=== PATIENT | male | born 1975 | race African-American/Black ===

== ENCOUNTER 2020-05-18 07:55 | Emergency (ER) | payer MEDICAID, OTHER ==
[~2020-05-18] VITALS: Ht 172.7 cm; Wt 73.0 kg
[2020-05-18] MEDS ORDERED: SODIUM CHLORIDE 0.9% 1,000 ML IV ONE (08:06)
[2020-05-18] MEDS ORDERED: MORPHINE SULFATE 4 MG/ML CPJ (NOT FOR IM USE) IV STA (08:06)
[2020-05-18] MEDS ORDERED: ONDANSETRON HCL 4MG/2ML INJ IV STA (08:06)
[2020-05-18] MEDS ORDERED: FAMOTIDINE 20MG/2ML VIAL IV STA (08:06)
[2020-05-18 08:31] LABS: HEMATOCRIT. 38.1 % (42.0-52.0); HEMOGLOBIN. 13.1 g/dL (14.0-18.0); MEAN CORPUSCULAR HEMOGLOBIN 30.8 pg (28.0-32.0); MEAN CORPUSCULAR VOLUME 89.8 fL (80.0-94.0); MEAN PLATELET VOLUME 8.3 fl (7.4-10.4); PLATELET 257 x1000/uL (130-400); RED BLOOD CELL COUNT 4.24 mill/uL (4.7-6.1); RED CELL DISTRIBUTION WIDTH 14.5 % (11.6-14.6)
[2020-05-18 08:37] LABS: CHLORIDE 99 mEq/L (98-107)
[2020-05-18 08:48] LABS: PROTHROMBIN TIME 10.3 sec (9.6-11.0)
[2020-05-18 09:31] LABS: PLATELET ESTIMATE NORMAL
[2020-05-18 11:30] VITALS: BP 191/101
== END 2020-05-18 11:35 | disposition home or self-care (01) ==
LOC: ER 07:55
DX: R10.84 Generalized abdominal pain (principal); E11.9 Type 2 diabetes mellitus without complications
CPT/HCPCS: 36415; 74176; 80053; 83690; 85025; 85610; 93005; 96361; 96374; 96375; 99285; J2270; J2405; J3490; J7030

== ENCOUNTER 2020-05-19 06:31 | Emergency (ER) | payer MEDICAID ==
[~2020-05-19] VITALS: Ht 165.1 cm; Wt 73.0 kg
[2020-05-19] MEDS ORDERED: FAMOTIDINE 20MG/2ML VIAL IV STA (06:43)
[2020-05-19] MEDS ORDERED: ONDANSETRON HCL 4MG/2ML INJ IV STA (06:43)
[2020-05-19] MEDS ORDERED: SODIUM CHLORIDE 0.9% 1,000 ML IV ONE (06:43)
[2020-05-19] MEDS ORDERED: MORPHINE SULFATE 4 MG/ML CPJ (NOT FOR IM USE) IV STA (06:43)
[2020-05-19] MEDS ORDERED: LORAZEPAM 2MG/ML CPJ IV ONE (06:45)
[2020-05-19 07:06] LABS: BASOPHILS % 0.6 % (0.0-2.0); EOSINOPHILS % 0.9 % (0.0-5.0); HEMATOCRIT. 40.9 % (42.0-52.0); HEMOGLOBIN. 13.8 g/dL (14.0-18.0); LYMPHOCYTES % 9.5 % (20.0-50.0); MEAN CORPUSCULAR HEMOGLOBIN 30.8 pg (28.0-32.0); MEAN CORPUSCULAR VOLUME 91.3 fL (80.0-94.0); MEAN PLATELET VOLUME 8.6 fl (7.4-10.4); MONOCYTES % 5.3 % (2.0-8.0); NEUTROPHILS % 83.7 % (40.0-76.0); PLATELET 251 x1000/uL (130-400); RED BLOOD CELL COUNT 4.48 mill/uL (4.7-6.1); RED CELL DISTRIBUTION WIDTH 14.4 % (11.6-14.6)
[2020-05-19 07:10] LABS: CHLORIDE 100 mEq/L (98-107)
[2020-05-19 07:15] LABS: ETHANOL BLOOD < 10 mg/dL; INR 0.9; PROTHROMBIN TIME 9.8 sec (9.6-11.0)
[2020-05-19 07:33] LABS: CLARITY URINE CLEAR (CLEAR); COLOR URINE YELLOW (YELLOW); KETONES URINE 1+ (NEGATIVE); LEUKOCYTE ESTERASE URINE NEGATIVE (NEGATIVE); NITRITE URINE NEGATIVE (NEGATIVE); OCCULT BLOOD URINE 2+ (NEGATIVE); PH URINE 6.5 (4.5-8.0); PROTEIN URINE 4+ (NEGATIVE); SPECIFIC GRAVITY URINE 1.022 (1.005-1.030)
[2020-05-19 08:12] LABS: *AMPHETAMINES SCREEN URINE NEGATIVE (NEGATIVE); *BARBITURATES SCREEN URINE NEGATIVE (NEGATIVE); *BENZODIAZEPINES SCREEN URINE NEGATIVE (NEGATIVE); *COCAINE SCREEN URINE NEGATIVE (NEGATIVE); CANNABINOID URINE SCREEN PRESUMTIVE POSITIVE (NEGATIVE); METHADONE URINE SCREEN NEGATIVE (NEGATIVE); OPIATES URINE SCREEN PRESUMTIVE POSITIVE (NEGATIVE); PHENCYCLIDINE URINE SCREEN NEGATIVE (NEGATIVE)
[2020-05-19 08:30] VITALS: BP 192/97
== END 2020-05-19 08:32 | disposition home or self-care (01) ==
LOC: ER 06:31
DX: R10.13 Epigastric pain (principal); R11.2 Nausea with vomiting, unspecified; F12.10 Cannabis abuse, uncomplicated; E11.9 Type 2 diabetes mellitus without complications; I10 Essential (primary) hypertension
CPT/HCPCS: 36415; 71045; 80053; 80305; 80320; 81003; 83690; 84484; 85025; 85610; 93005; 96361; 96374; 96375; 99285; J2060; J2270; J2405; J3490; J7030; G0480

== ENCOUNTER 2021-08-13 18:08 | Inpatient (IN) | payer MEDICAID ==
[~2021-08-13] VITALS: Ht 175.3 cm; Wt 79.4 kg
[2021-08-13] MEDS ORDERED: ONDANSETRON HCL 4MG/2ML INJ IV STA (18:31)
[2021-08-13] MEDS ORDERED: SODIUM CHLORIDE 0.9% 1,000 ML IV ONE (18:45)
[2021-08-13 19:41] LABS: HEMATOCRIT. 34.1 % (42.0-52.0); HEMOGLOBIN. 11.6 g/dL (14.0-18.0); MEAN CORPUSCULAR HEMOGLOBIN 30.8 pg (28.0-32.0); MEAN CORPUSCULAR VOLUME 90.2 fL (80.0-94.0); PLATELET 284 x1000/uL (130-400); RED BLOOD CELL COUNT 3.77 mill/uL (4.7-6.1); RED CELL DISTRIBUTION WIDTH 14.2 % (11.6-14.6)
[2021-08-13 19:46] LABS: CHLORIDE 101 mEq/L (98-107)
[2021-08-13 19:49] LABS: PROTHROMBIN TIME 10.7 sec (9.6-11.0)
[2021-08-13 19:50] LABS: ETHANOL BLOOD < 10 mg/dL
[2021-08-13] MEDS ORDERED: PIPERACILLIN/TAZ 3.375G PREMIX 50 ML IV NR (20:00)
[2021-08-13] MEDS ORDERED: VANCOMYCIN 1 G PREMIX 200 ML IV NR (20:00)
[2021-08-13] MEDS ORDERED: HYDROCODONE/ACETAMINOPHEN 5/325MG TABLET PO ONE (20:00)
[2021-08-13 20:05] LABS: PLATELET ESTIMATE NORMAL
[2021-08-13] MEDS ORDERED: SODIUM CHLORIDE 0.9% 1,000 ML IV NR (21:30)
[2021-08-14 07:00] LABS: CLARITY URINE CLOUDY (CLEAR); COLOR URINE YELLOW (YELLOW); KETONES URINE NEGATIVE (NEGATIVE); LEUKOCYTE ESTERASE URINE NEGATIVE (NEGATIVE); NITRITE URINE NEGATIVE (NEGATIVE); OCCULT BLOOD URINE TRACE (NEGATIVE); PROTEIN URINE 3+ (NEGATIVE); SPECIFIC GRAVITY URINE 1.019 (1.005-1.030)
[2021-08-14 07:27] LABS: *AMPHETAMINES SCREEN URINE NEGATIVE (NEGATIVE); *BARBITURATES SCREEN URINE NEGATIVE (NEGATIVE); *BENZODIAZEPINES SCREEN URINE NEGATIVE (NEGATIVE); *COCAINE SCREEN URINE NEGATIVE (NEGATIVE); METHADONE URINE SCREEN NEGATIVE (NEGATIVE)
[2021-08-14 07:28] LABS: CANNABINOID URINE SCREEN PRESUMTIVE POSITIVE (NEGATIVE); OPIATES URINE SCREEN PRESUMTIVE POSITIVE (NEGATIVE); PHENCYCLIDINE URINE SCREEN NEGATIVE (NEGATIVE)
[2021-08-14] MEDS ORDERED: NALOXONE HCL 0.4MG/ML VIAL IV PRN (09:30)
[2021-08-14] MEDS: HYDROCODONE/ACETAMINOPHEN 10/325MG TABLET PO PRN ×3 (09:30→22:57)
[2021-08-14 10:09] VITALS: BP 128/87
[2021-08-14] MEDS ORDERED: INSU100I28 SQ (10:37)
[2021-08-14] MEDS ORDERED: VANCOMYCIN 1 G PREMIX 200 ML IV SCH (11:00)
[2021-08-14] MEDS ORDERED: MORPHINE SULFATE 2 MG/ML CPJ (NOT FOR IM USE) IV NR (11:00)
[2021-08-14] MEDS: ENOXAPARIN 30MG/0.3ML SYR SUBCUT SCH (11:17)
[2021-08-14] MEDS: PIPERACILLIN/TAZOBACTAM 3.375 G in DEXTROSE 5% WATER 50 ML IV SCH ×2 (11:21→20:35)
[2021-08-14 11:57] VITALS: BP 128/87
[2021-08-14] MEDS: INSULIN GLARGINE UD 100 UNITS/ML SYR SUBCUT SCH ×2 (12:40→20:37)
[2021-08-14] MEDS ORDERED: DEXTROSE 50% WATER 50ML SYRINGE IV PRN (13:45)
[2021-08-14 16:00] VITALS: BP 165/86
[2021-08-14] MEDS: BLOOD SUGAR DIAGNOSTIC STRIP TEST SCH ×2 (16:06→20:35)
[2021-08-14] MEDS: AMLODIPINE 10MG TABLET PO SCH ×2 (17:00→17:05)
[2021-08-14] MEDS: INSULIN LISPRO 100 UNITS/ML SUBCUT SCH ×2 (17:06→20:35)
[2021-08-14 17:43] LABS: HEPATITIS B SURFACE ANTIGEN NEGATIVE
[2021-08-14 20:00] VITALS: BP 140/90
[2021-08-14] MEDS: SODIUM CHLORIDE 0.9% 1,000 ML IV SCH (20:35)
[2021-08-15 04:00] VITALS: BP 141/83
[2021-08-15] MEDS: ACETAMINOPHEN 325MG TABLET PO PRN ×2 (04:45→12:46)
[2021-08-15] MEDS: SODIUM CHLORIDE 0.9% 1,000 ML IV SCH ×2 (05:26→17:52)
[2021-08-15] MEDS: BLOOD SUGAR DIAGNOSTIC STRIP TEST SCH ×4 (06:16→20:00)
[2021-08-15] MEDS: INSULIN LISPRO 100 UNITS/ML SUBCUT SCH ×4 (06:17→21:49)
[2021-08-15 06:18] LABS: BASOPHILS % 0.2 % (0.0-2.0); EOSINOPHILS % 1.4 % (0.0-5.0); HEMATOCRIT. 29.3 % (42.0-52.0); HEMOGLOBIN. 9.7 g/dL (14.0-18.0); LYMPHOCYTES % 7.1 % (20.0-50.0); MEAN CORPUSCULAR HEMOGLOBIN 29.7 pg (28.0-32.0); MEAN CORPUSCULAR VOLUME 89.7 fL (80.0-94.0); MEAN PLATELET VOLUME 8.8 fl (7.4-10.4); MONOCYTES % 7.9 % (2.0-8.0); NEUTROPHILS % 83.4 % (40.0-76.0); PLATELET 301 x1000/uL (130-400); RED BLOOD CELL COUNT 3.27 mill/uL (4.7-6.1); RED CELL DISTRIBUTION WIDTH 14.3 % (11.6-14.6)
[2021-08-15 08:00] VITALS: BP 160/82
[2021-08-15] MEDS: PIPERACILLIN/TAZOBACTAM 3.375 G in DEXTROSE 5% WATER 50 ML IV SCH ×2 (08:27→21:46)
[2021-08-15] MEDS: ENOXAPARIN 30MG/0.3ML SYR SUBCUT SCH (08:27)
[2021-08-15] MEDS: AMLODIPINE 10MG TABLET PO SCH ×2 (08:28→08:37)
[2021-08-15] MEDS ORDERED: ENOXAPARIN 40MG/0.4ML SYR SUBCUT SCH (09:00)
[2021-08-15] MEDS ORDERED: MORPHINE SULFATE 2 MG/ML CPJ (NOT FOR IM USE) IV NR (10:15)
[2021-08-15] MEDS: INSULIN GLARGINE UD 100 UNITS/ML SYR SUBCUT SCH ×2 (10:28→21:48)
[2021-08-15 12:00] VITALS: BP 164/69
[2021-08-15] MEDS: OXYCODONE HCL/ACETAMINOPHEN 5/325MG TABLET PO PRN ×2 (13:43→21:47)
[2021-08-15 16:00] VITALS: BP 168/52
[2021-08-15 20:00] VITALS: BP_SYST 104; BP_SYST 150; BP_DIAS 58; BP_DIAS 78
[2021-08-16] VITALS: BP 132/59
[2021-08-16 04:00] VITALS: BP 194/92
[2021-08-16] MEDS: OXYCODONE HCL/ACETAMINOPHEN 5/325MG TABLET PO PRN ×4 (04:32→21:16)
[2021-08-16] MEDS: SODIUM CHLORIDE 0.9% 1,000 ML IV SCH ×3 (04:33→21:17)
[2021-08-16] MEDS: BLOOD SUGAR DIAGNOSTIC STRIP TEST SCH ×4 (06:40→21:08)
[2021-08-16 06:43] LABS: HEMATOCRIT. 28.1 % (42.0-52.0); HEMOGLOBIN. 9.3 g/dL (14.0-18.0); MEAN CORPUSCULAR HEMOGLOBIN 29.7 pg (28.0-32.0); MEAN CORPUSCULAR VOLUME 89.6 fL (80.0-94.0); MEAN PLATELET VOLUME 8.2 fl (7.4-10.4); PLATELET 328 x1000/uL (130-400); RED BLOOD CELL COUNT 3.14 mill/uL (4.7-6.1); RED CELL DISTRIBUTION WIDTH 14.5 % (11.6-14.6)
[2021-08-16] MEDS: INSULIN LISPRO 100 UNITS/ML SUBCUT SCH ×4 (07:10→21:00)
[2021-08-16 08:00] VITALS: BP 178/93
[2021-08-16] MEDS: ACETAMINOPHEN 325MG TABLET PO PRN (08:17)
[2021-08-16] MEDS: AMLODIPINE 10MG TABLET PO SCH ×2 (08:17→08:24)
[2021-08-16] MEDS: PIPERACILLIN/TAZOBACTAM 3.375 G in DEXTROSE 5% WATER 50 ML IV SCH ×2 (08:17→21:08)
[2021-08-16] MEDS: ENOXAPARIN 30MG/0.3ML SYR SUBCUT SCH (08:17)
[2021-08-16] MEDS: INSULIN GLARGINE UD 100 UNITS/ML SYR SUBCUT SCH ×2 (10:34→21:16)
[2021-08-16] MEDS ORDERED: HYDRALAZINE HCL 100MG TABLET PO SCH (11:15)
[2021-08-16 11:44] LABS: PLATELET ESTIMATE NORMAL
[2021-08-16 16:00] VITALS: BP 159/71
[2021-08-16 20:00] VITALS: BP 159/98
[2021-08-16] MEDS: HYDRALAZINE HCL 100MG TABLET PO SCH (21:00)
[2021-08-17] VITALS: BP 167/96
[2021-08-17 04:00] VITALS: BP 168/80
[2021-08-17] MEDS: OXYCODONE HCL/ACETAMINOPHEN 5/325MG TABLET PO PRN ×3 (05:54→21:43)
[2021-08-17] MEDS: BLOOD SUGAR DIAGNOSTIC STRIP TEST SCH ×4 (05:55→20:06)
[2021-08-17] MEDS: INSULIN LISPRO 100 UNITS/ML SUBCUT SCH ×4 (05:55→21:00)
[2021-08-17] MEDS: SODIUM CHLORIDE 0.9% 1,000 ML IV SCH ×2 (08:00→16:54)
[2021-08-17] MEDS: ENOXAPARIN 30MG/0.3ML SYR SUBCUT SCH (09:00)
[2021-08-17] MEDS: HYDRALAZINE HCL 100MG TABLET PO SCH ×2 (09:00→21:00)
[2021-08-17] MEDS: AMLODIPINE 10MG TABLET PO SCH (09:00)
[2021-08-17] MEDS: INSULIN GLARGINE UD 100 UNITS/ML SYR SUBCUT SCH ×2 (09:32→21:12)
[2021-08-17] MEDS: PIPERACILLIN/TAZOBACTAM 3.375 G in DEXTROSE 5% WATER 50 ML IV SCH ×2 (09:33→20:06)
[2021-08-17 13:07] LABS: ANTI-NUCLEAR ANTIBODIES DIRECT Positive (Negative)
[2021-08-17 16:00] VITALS: BP 170/87
[2021-08-17] MEDS ORDERED: LIDOCAINE HCL/PF 2% 20MG/ML 5 ML/VIAL INJ ONE (18:45)
[2021-08-17 20:00] VITALS: BP 171/89
[2021-08-17 21:28] LABS: BASOPHILS % 0.3 % (0.0-2.0); EOSINOPHILS % 2.2 % (0.0-5.0); HEMATOCRIT. 29.1 % (42.0-52.0); HEMOGLOBIN. 9.5 g/dL (14.0-18.0); LYMPHOCYTES % 8.6 % (20.0-50.0); MEAN CORPUSCULAR HEMOGLOBIN 29.5 pg (28.0-32.0); MEAN CORPUSCULAR VOLUME 90.8 fL (80.0-94.0); MEAN PLATELET VOLUME 7.8 fl (7.4-10.4); MONOCYTES % 7.1 % (2.0-8.0); NEUTROPHILS % 81.8 % (40.0-76.0); PLATELET 430 x1000/uL (130-400); RED BLOOD CELL COUNT 3.21 mill/uL (4.7-6.1); RED CELL DISTRIBUTION WIDTH 14.8 % (11.6-14.6)
[2021-08-17 21:43] LABS: PHOSPHORUS 3.4 mg/dL (2.5-4.9)
[2021-08-17] MEDS ORDERED: VANCOMYCIN 1 G PREMIX 200 ML IV NR (23:00)
[2021-08-18] VITALS: BP 169/75
[2021-08-18 04:00] VITALS: BP 140/71
[2021-08-18] MEDS: SODIUM CHLORIDE 0.9% 1,000 ML IV SCH ×2 (04:26→16:33)
[2021-08-18] MEDS: OXYCODONE HCL/ACETAMINOPHEN 5/325MG TABLET PO PRN ×4 (04:26→21:51)
[2021-08-18] MEDS: BLOOD SUGAR DIAGNOSTIC STRIP TEST SCH ×4 (06:47→21:51)
[2021-08-18] MEDS: INSULIN LISPRO 100 UNITS/ML SUBCUT SCH ×4 (06:47→21:00)
[2021-08-18 08:00] VITALS: BP 181/96
[2021-08-18] MEDS: HYDRALAZINE HCL 100MG TABLET PO SCH ×2 (09:00→21:50)
[2021-08-18] MEDS: AMLODIPINE 10MG TABLET PO SCH (09:00)
[2021-08-18] MEDS: PIPERACILLIN/TAZOBACTAM 3.375 G in DEXTROSE 5% WATER 50 ML IV SCH ×2 (09:10→21:50)
[2021-08-18 12:00] VITALS: BP 179/100
[2021-08-18] MEDS: ENOXAPARIN 30MG/0.3ML SYR SUBCUT SCH (12:27)
[2021-08-18] MEDS: INSULIN GLARGINE UD 100 UNITS/ML SYR SUBCUT SCH ×2 (12:28→21:52)
[2021-08-18 16:00] VITALS: BP 182/86
[2021-08-18 18:14] LABS: BASOPHILS % 0.5 % (0.0-2.0); EOSINOPHILS % 2.3 % (0.0-5.0); HEMATOCRIT. 27.2 % (42.0-52.0); HEMOGLOBIN. 9.1 g/dL (14.0-18.0); LYMPHOCYTES % 13.2 % (20.0-50.0); MEAN CORPUSCULAR HEMOGLOBIN 29.7 pg (28.0-32.0); MEAN PLATELET VOLUME 7.8 fl (7.4-10.4); MONOCYTES % 7.9 % (2.0-8.0); NEUTROPHILS % 76.1 % (40.0-76.0); PLATELET 472 x1000/uL (130-400); RED BLOOD CELL COUNT 3.06 mill/uL (4.7-6.1); RED CELL DISTRIBUTION WIDTH 14.5 % (11.6-14.6)
[2021-08-18 20:00] VITALS: BP 162/71
[2021-08-19] VITALS: BP 145/86
[2021-08-19] MEDS: OXYCODONE HCL/ACETAMINOPHEN 5/325MG TABLET PO PRN ×4 (01:58→17:36)
[2021-08-19] MEDS: SODIUM CHLORIDE 0.9% 1,000 ML IV SCH ×3 (01:58→23:27)
[2021-08-19 04:00] VITALS: BP 153/89
[2021-08-19] MEDS: INSULIN LISPRO 100 UNITS/ML SUBCUT SCH ×4 (05:59→21:00)
[2021-08-19] MEDS: BLOOD SUGAR DIAGNOSTIC STRIP TEST SCH ×4 (05:59→20:36)
[2021-08-19 08:00] VITALS: BP 172/85
[2021-08-19] MEDS: PIPERACILLIN/TAZOBACTAM 3.375 G in DEXTROSE 5% WATER 50 ML IV SCH (09:12)
[2021-08-19] MEDS: ENOXAPARIN 30MG/0.3ML SYR SUBCUT SCH (09:14)
[2021-08-19] MEDS: INSULIN GLARGINE UD 100 UNITS/ML SYR SUBCUT SCH (09:45)
[2021-08-19] MEDS: AMLODIPINE 10MG TABLET PO SCH (10:14)
[2021-08-19] MEDS: HYDRALAZINE HCL 100MG TABLET PO SCH ×2 (10:14→22:00)
[2021-08-19 12:00] VITALS: BP 166/90
[2021-08-19] MEDS: ONDANSETRON HCL 4MG/2ML INJ IV PRN ×2 (12:29→23:01)
[2021-08-19] MEDS ORDERED: LACTULOSE 20G/30ML UDC PO PRN (12:45)
[2021-08-19 16:00] VITALS: BP 179/89
[2021-08-19] MEDS ORDERED: NALOXONE HCL 0.4MG/ML VIAL IV PRN (17:15)
[2021-08-19] MEDS: CLONIDINE 0.1MG TABLET PO SCH (17:36)
[2021-08-19 20:00] VITALS: BP 158/88
[2021-08-19] MEDS: CEFAZOLIN 1000MG PREMIX 50 ML IV SCH (20:44)
[2021-08-20] VITALS: BP 156/86
[2021-08-20 04:00] VITALS: BP 153/79
[2021-08-20] MEDS: CEFAZOLIN 1000MG PREMIX 50 ML IV SCH ×2 (05:13→18:29)
[2021-08-20] MEDS: HYDRALAZINE HCL 100MG TABLET PO SCH ×2 (06:00→14:00)
[2021-08-20] MEDS: BLOOD SUGAR DIAGNOSTIC STRIP TEST SCH ×3 (06:18→16:40)
[2021-08-20] MEDS: INSULIN LISPRO 100 UNITS/ML SUBCUT SCH ×3 (07:10→17:10)
[2021-08-20 08:00] VITALS: BP 164/85
[2021-08-20] MEDS: CLONIDINE 0.1MG TABLET PO SCH ×2 (08:36→09:00)
[2021-08-20] MEDS: AMLODIPINE 10MG TABLET PO SCH ×2 (08:36→09:00)
[2021-08-20] MEDS: OXYCODONE HCL/ACETAMINOPHEN 5/325MG TABLET PO PRN ×2 (08:37→10:21)
[2021-08-20] MEDS ORDERED: HYDROMORPHONE HCL/PF 2MG/ML CPJ IV PRN (09:45)
[2021-08-20] MEDS ORDERED: AMLO10TA80 PO (10:47)
[2021-08-20] MEDS ORDERED: CLON0.1T PO (10:47)
[2021-08-20] MEDS ORDERED: HYDR100T26 PO (10:47)
[2021-08-20] MEDS ORDERED: OXYC1TAB5 PO (10:47)
[2021-08-20] MEDS: SODIUM CHLORIDE 0.9% 1,000 ML IV SCH ×2 (10:57→16:00)
[2021-08-20] MEDS: ENOXAPARIN 30MG/0.3ML SYR SUBCUT SCH (10:58)
[2021-08-20 12:00] VITALS: BP 187/82
[2021-08-20] MEDS ORDERED: CLONIDINE 0.1MG TABLET PO SCH (17:00)
[2021-08-20 17:52] VITALS: BP 158/80
== END 2021-08-20 18:26 | disposition home health service (06) | DRG 320 ==
LOC: ER 18:08 → MICUSO 08-14 01:22 → 7EST 08-14 09:14
PROVIDERS: ADMIT Internal Medicine; ATTEND Internal Medicine
PROC: 0QBQ0ZZ Excision of Right Toe Phalanx, Open Approach (ICD-10-PCS; 2021-08-17)
PROC: 02HV33Z Insertion of Infusion Device into Superior Vena Cava, Percutaneous Approach (ICD-10-PCS; principal; 2021-08-18)
PROC: B548ZZA Ultrasonography of Superior Vena Cava, Guidance (ICD-10-PCS; 2021-08-18)
PROC: B5181ZA Fluoroscopy of Superior Vena Cava using Low Osmolar Contrast, Guidance (ICD-10-PCS; 2021-08-18)
DX: E11.69 Type 2 diabetes mellitus with other specified complication (principal); M86.8X7 Other osteomyelitis, ankle and foot; N17.0 Acute kidney failure with tubular necrosis; E43 Unspecified severe protein-calorie malnutrition; E11.319 Type 2 diabetes mellitus with unspecified diabetic retinopathy without macular edema; E87.1 Hypo-osmolality and hyponatremia; E11.621 Type 2 diabetes mellitus with foot ulcer; E11.22 Type 2 diabetes mellitus with diabetic chronic kidney disease; D64.9 Anemia, unspecified; L97.519 Non-pressure chronic ulcer of other part of right foot with unspecified severity; E11.65 Type 2 diabetes mellitus with hyperglycemia; D72.829 Elevated white blood cell count, unspecified; L02.611 Cutaneous abscess of right foot; Z20.822 Contact with and (suspected) exposure to COVID-19; N18.9 Chronic kidney disease, unspecified; Z79.4 Long term (current) use of insulin; Z91.14 Patient's other noncompliance with medication regimen; Q84.6 Other congenital malformations of nails; Z87.891 Personal history of nicotine dependence; Z79.899 Other long term (current) drug therapy; Z68.25 Body mass index [BMI] 25.0-25.9, adult
CPT/HCPCS: 36415; 36573; 71045; 73630; 73721; 76770; 80048; 80053; 80061; 80202; 80305; 80320; 81003; 82550; 82570; 82575; 82962; 83036; 83605; 83735; 83880; 84100; 84156; 84300; 84484; 85025; 85651; 86038; 86160; 86592; 86803; 87077; 87186; 87340; 87426; 93923; 97022; 97162; 99291; C1725; J0690; J1650; J1815; J2270; J2405; J2543; J3370; J3490; J7030; J7040; J7060; G0480

== ENCOUNTER 2023-10-26 07:06 | Inpatient (IN) | payer MEDICAID, OTHER ==
[~2023-10-26] VITALS: Ht 175.3 cm; Wt 77.1 kg
[~2023-10-26 07:06] MED LIST: AMLO10TA80 PO; CLON0.1T PO; HYDR100T26 PO; INSU100I28 SQ; OXYC1TAB5 PO
[2023-10-26] MEDS ORDERED: LEVETIRACETAM 1000MG PREMIX 100 ML IV ONE (07:30)
[2023-10-26 08:07] LABS: BG BASE EXCESS -3.4 mmol/L (-2.0-2.0); BG CARBOXYHEMOGLOBIN 0.5 % (0.5-1.5); BG DEOXYHEMOGLOBIN 3.8 % (0.0-5.0); BG FRACTION INSPIRED OXYGEN 21; BG HCO3 ACT 21.9 mmol/L (22.0-26.0); BG OXYGEN SATURATION 96.2 % (92.0-98.5); BG OXYHEMOGLOBIN 95.7 % (94.0-97.0); BG PCO2 40.4 mmHg (35.0-45.0); BG PH 7.352 (7.350-7.450); BG PO2 93.5 mmHg (75.0-100.0); BG SAMPLE SITE RIGHT RADIAL; BG TOTAL HEMOGLOBIN 9.9 g/dL (12.0-18.0); BG VENT MODE ROOM AIR
[2023-10-26] MEDS ORDERED: MORPHINE SULFATE 4 MG/ML CPJ (NOT FOR IM USE) IV ONE (08:30)
[2023-10-26] MEDS ORDERED: LORAZEPAM 2MG/ML INJ IV ONE (08:30)
[2023-10-26 08:59] LABS: HEMOGLOBIN. 8.3 g/dL (14.0-18.0); MEAN CORPUSCULAR HEMOGLOBIN 27.6 pg (28.0-32.0); MEAN CORPUSCULAR HGB CONC 33.3 g/dL (31.0-37.0); MEAN CORPUSCULAR VOLUME 83.1 fL (80.0-94.0); PLATELET 124 x1000/uL (130-400); RED CELL DISTRIBUTION WIDTH 19.5 % (11.6-14.6); WHITE BLOOD COUNT 13.6 x1000/uL (4.5-11.0)
[2023-10-26] MEDS: LORAZEPAM 2MG/ML INJ IV NR ×3 (09:05→09:26)
[2023-10-26 09:06] LABS: DIFFERENTIAL COMMENT 1
[2023-10-26 09:12] LABS: ALANINE AMINOTRANSFERASE 8 IU/L (10-49); ALBUMIN 3.7 g/dL (3.2-4.8); ASPARTATE AMINOTRANSFERASE 18 IU/L (<34); BETA HYDROXYBUTYRATE 1.7 mMol/L (0.0-0.3); CALCIUM 8.4 mg/dL (8.7-10.4); CARBON DIOXIDE 25 mEq/L (21-32); CHLORIDE 86 mEq/L (98-107); PROTEIN TOTAL 6.8 g/dL (6.0-8.3); UREA NITROGEN BLOOD 45 mg/dL (9-23)
[2023-10-26 09:59] LABS: ETHANOL BLOOD < 10 mg/dL (<10)
[2023-10-26 10:02] LABS: ANISOCYTOSIS 2+; PLATELET ESTIMATE SLIGHTLY DECREASED
[2023-10-26 10:06] LABS: CREATININE 9.8 mg/dL (0.6-1.3); GLUCOSE 834 mg/dL (70-105); SODIUM 120 mEq/L (136-145)
[2023-10-26] MEDS ORDERED: SODIUM CHLORIDE 0.9% 500 ML IV ONE (10:30)
[2023-10-26] MEDS ORDERED: INSULIN REGULAR (HUMULIN R) 300UNITS/3ML VIAL IV ONE (10:30)
[2023-10-26] MEDS: DEXT 5%/0.9% NACL 1,000 ML IV SCH ×3 (13:15→21:15)
[2023-10-26] MEDS ORDERED: INSULIN REGULAR (DRIP) 100 UNITS in SODIUM CHLORIDE 0.9% 99 ML IV SCH (13:15)
[2023-10-26] MEDS ORDERED: KCL 20MEQ/100ML PREMIX 100 ML IV PRN (13:15)
[2023-10-26] MEDS ORDERED: DEXTROSE 50% WATER 50ML SYRINGE IV PRN ×2 (13:15→23:30)
[2023-10-26] MEDS: SODIUM CHLORIDE 0.9% 1,000 ML IV SCH (13:25)
[2023-10-26] MEDS: BLOOD SUGAR DIAGNOSTIC STRIP TEST SCH ×4 (13:25→16:34)
[2023-10-26] MEDS ORDERED: INSULIN REGULAR 100U/100ML PMX 100 ML IV SCH ×2 (13:30→13:45)
[2023-10-26 19:39] LABS: CALCIUM 8.5 mg/dL (8.7-10.4); POTASSIUM 3.5 mEq/L (3.5-5.1)
[2023-10-26 19:40] LABS: CREATININE 10.3 mg/dL (0.6-1.3)
[2023-10-26] MEDS ORDERED: HYDRALAZINE 20MG/ML VIAL IV NR (22:00)
[2023-10-26] MEDS ORDERED: HYDROCODONE/ACETAMINOPHEN 10/325MG TABLET PO PRN (23:30)
[2023-10-26] MEDS ORDERED: AMLODIPINE 10MG TABLET PO SCH (23:45)
[2023-10-26] MEDS ORDERED: CLONIDINE 0.2MG TABLET PO PRN (23:45)
[2023-10-27] VITALS (15 sets, daily range): BP systolic 127–194; BP diastolic 61–111; PULSE 78–106; RESP 16–20; TEMP 96.6–98.2; O2SAT 100
[2023-10-27] MEDS ORDERED: LORAZEPAM 1MG TABLET PO ONE
[2023-10-27] MEDS ORDERED: LORAZEPAM 1MG TABLET PO PRN
[2023-10-27] MEDS: LEVETIRACETAM 500MG TABLET PO SCH ×3 (01:22→20:10)
[2023-10-27] MEDS ORDERED: AMLODIPINE 10MG TABLET PO NR (04:15)
[2023-10-27] MEDS: DEXT 5%/0.9% NACL 1,000 ML IV SCH (05:15)
[2023-10-27] MEDS: BLOOD SUGAR DIAGNOSTIC STRIP TEST SCH ×6 (05:21→17:20)
[2023-10-27] MEDS: HYDRALAZINE HCL 100MG TABLET PO SCH ×2 (06:00→14:00)
[2023-10-27] MEDS: SODIUM CHLORIDE 0.9% 1,000 ML IV SCH (06:07)
[2023-10-27] MEDS: INSULIN LISPRO 100 UNITS/ML SUBCUT SCH ×3 (06:49→17:50)
[2023-10-27] MEDS ORDERED: AMLODIPINE 10MG TABLET PO SCH (09:00)
[2023-10-27] MEDS ORDERED: LEVETIRACETAM 500MG TABLET PO SCH (09:00)
[2023-10-27] MEDS ORDERED: NALOXONE HCL 0.4MG/ML VIAL IV PRN (11:30)
[2023-10-27] MEDS ORDERED: INSULIN GLARGINE 100 UNITS/ML SUBCUT SCH ×2 (11:30→22:00)
[2023-10-27 16:33] LABS: HEPATITIS A AB IGM NEGATIVE (Negative); HEPATITIS B CORE AB IGM NEGATIVE (Negative); HEPATITIS B SURFACE ANTIGEN NEGATIVE (Negative); HEPATITIS C AB NON REACTIVE (Neg) (Negative)
[2023-10-27 17:06] LABS: PHOSPHORUS 3.8 mg/dL (2.5-4.9)
[2023-10-27] MEDS ORDERED: KEPP500 MT (19:59)
[2023-10-27] MEDS ORDERED: EPOETIN ALFA 4000UNITS/ML VIAL SUBCUT SCH (21:00)
== END 2023-10-27 20:39 | disposition home or self-care (01) | DRG 53 ==
LOC: ER 07:06 → EDBEDREQTM 11:46 → EDBEDREQ 11:46 → EDBEDREQTM 13:10 → 6EST 13:10 → EDBEDREQSVC 13:10
PROVIDERS: ADMIT Internal Medicine; ATTEND Internal Medicine
PROC: 5A1D70Z Performance of Urinary Filtration, Intermittent, Less than 6 Hours Per Day (ICD-10-PCS; principal; 2023-10-27)
DX: G40.909 Epilepsy, unspecified, not intractable, without status epilepticus (principal); D69.6 Thrombocytopenia, unspecified; N18.6 End stage renal disease; I12.0 Hypertensive chronic kidney disease with stage 5 chronic kidney disease or end stage renal disease; E87.1 Hypo-osmolality and hyponatremia; E11.22 Type 2 diabetes mellitus with diabetic chronic kidney disease; D64.9 Anemia, unspecified; D72.829 Elevated white blood cell count, unspecified; E11.65 Type 2 diabetes mellitus with hyperglycemia; Z79.4 Long term (current) use of insulin; Z91.148 Patient's other noncompliance with medication regimen for other reason; Z99.2 Dependence on renal dialysis
CPT/HCPCS: 36415; 36600; 71045; 80048; 80053; 80061; 80320; 82010; 82375; 82805; 82962; 83036; 84100; 85025; 86705; 86709; 87340; 90935; 93005; 99291; J0360; J0885; J1815; J1953; J2060; J2270; J7030; J7040; J7042; G0480